=== PATIENT | female | born 1950 | race Two or more races ===

== ENCOUNTER 2022-10-23 19:07 | Emergency (ER) | payer BC ==
[~2022-10-23] VITALS: Ht 165.1 cm; Wt 79.8 kg
--- NOTE | 2022-10-23 19:51 | NUR ---
TO ER BED 7. BIBS C/O BODY WEAKNESS AND SORE THROAT X 2 WEEKS. NOT RELIEVED BY OTC MEDS. RR EVEN AND NON LABORED. CONNECTED TO MONITOR AND POX.
--- NOTE | 2022-10-23 20:13 | NUR ---
XRAY AT BEDSIDE
[2022-10-23] MEDS ORDERED: ACETAMINOPHEN ES 500 MG TABLET ONE (20:20)
--- NOTE | 2022-10-23 20:23 | NUR ---
COVID AND INFLUENZA SWAB COLLECTED
[2022-10-23] MEDS ORDERED: ACETAMINOPHEN 325 MG TABLET PO ONE (20:30)
[2022-10-23] MEDS ORDERED: TYL2T PO (21:19)
[2022-10-23] MEDS ORDERED: BENZ1LOZ58 PO (21:19)
--- NOTE | 2022-10-23 21:20 | NUR ---
Patient discharged to home in stable condition. Written and verbal after care instructions given. Patient verbalizes understanding of instruction.
[2022-10-23 21:28] VITALS: BP 142/68
== END 2022-10-23 21:28 | disposition home or self-care (01) ==
LOC: ER 19:15
DX: Z20.822 Contact with and (suspected) exposure to COVID-19 (principal)
CPT/HCPCS: 99284; 71045; 87426; 87804; C9803